=== PATIENT | female | born 1955 | race Caucasian/White ===

== ENCOUNTER 2020-08-30 21:40 | Emergency (ER) | payer BC ==
[2020-08-30] MEDS ORDERED: Sodium Chloride 0.9% 10 ML Syringe FLUSH PRN (22:27)
[2020-08-30] MEDS ORDERED: Ondansetron 4 MG/2 ML SDV IVPUSH ONE (22:27)
--- NOTE | 2020-08-30 22:32 | EDM.PDOC ---
<Bettina Ramsey M - Last Filed: 08/31/20 00:01> ED HPI GENERAL MEDICAL PROBLEM - General Chief Complaint: Respiratory Problem Stated Complaint: sob covid pos Time Seen by Provider: 08/30/20 22:11 Source of Information: Reports: Patient History Limitations: Reports: No Limitations - History of Present Illness INITIAL COMMENTS - FREE TEXT/NARRATIVE: 65-year-old female presents the emergency department after testing Covid positive today. The patient states that her symptoms started approximately 7 days ago however. She states it started with a headache, cough and shortness of breath. She states she has had a fever and chills, nausea, vomiting and diarrhea. She also states that she has lost her sense of taste and smell. And has had little to no appetite. She has been trying to drink Gatorade as much as possible to stay hydrated. She does have a history of hypertension and hypothyroidism. She is also obese with a BMI of 40. She has not had her Covid vaccination yet this year. Headache Pain Score (Numeric/FACES): 9 - Related Data Allergies Allergy/AdvReac Type Severity Reaction Status Date / Time No Known Allergies Allergy Verified 08/30/20 22:09 Home Meds: Home Meds Levothyroxine 175 mcg PO DAILY 08/30/20 [History] Melatonin 5 mg PO BEDTIME 08/30/20 [History] Metoprolol Succinate 50 mg PO BEDTIME 08/30/20 [History] Sertraline [Zoloft] 100 mg PO BEDTIME 08/30/20 [History] hydroCHLOROthiazide [Hydrochlorothiazide] 12.5 mg PO DAILY 08/30/20 [History] Past Medical History HEENT History: Reports: Impaired Vision, Other (See Below) Other HEENT History: wears glasses Cardiovascular History: Reports: Hypertension [employer] History: Reports: Musculoskeletal History: Reports: Arthritis Psychiatric History: Reports: Depression Endocrine/Metabolic History: Reports: Hypothyroidism - Infectious Disease History Infectious Disease History: Reports: Chicken Pox, Measles, Mumps, Novel Coronavirus, Shingles - Past Surgical History HEENT Surgical History: Reports: Adenoidectomy, Tonsillectomy Social & Family History - Family History Family Medical History: No Pertinent Family History - Tobacco Use Tobacco Use Status *Q: Former Tobacco User Used Tobacco, but Quit: Yes Month/Year Tobacco Last Used: 08/1990 - Caffeine Use Caffeine Use: Reports: Coffee - Recreational Drug Use Recreational Drug Use: No ED ROS GENERAL - Review of Systems Review Of Systems: Comprehensive ROS is negative, except as noted in HPI. ED EXAM, GENERAL - Physical Exam Exam: See Below Exam Limited By: No Limitations General Appearance: Alert, WD/WN, Moderate Distress Ears: Normal External Exam, Hearing Grossly Normal Nose: Normal Inspection Throat/Mouth: Normal Inspection, Normal Lips, Normal Voice, No Airway Compromise Head: Atraumatic Neck: Normal Inspection, Supple Respiratory/Chest: Lungs Clear, Normal Breath Sounds, Chest Non-Tender, Respiratory Distress, Accessory Muscle Use Cardiovascular: Normal Peripheral Pulses, Regular Rate, Rhythm, No Edema, No Murmur Peripheral Pulses: 2+: Radial (L), Radial (R) GI/Abdominal: Normal Bowel Sounds, Soft, Non-Tender, No Distention (Female) Exam: Deferred Rectal (Female) Exam: Deferred Back Exam: Normal Inspection Extremities: Normal Inspection, Normal Range of Motion, No Pedal Edema, Normal Capillary Refill Neurological: Alert, Oriented, Normal Cognition Psychiatric: Normal Affect, Anxious Skin Exam: Warm, Dry, Intact, Normal Color, No Rash Lymphatic: No Adenopathy #1 Interpretation EKG Date: 08/30/20 Time: 22:35 Rhythm: NSR Rate (Beats/Min): 98 [place]: Normal P-Wave: Present QRS: Normal ST-T: Normal QT: Normal Comparison: NA - No Prior EKG EKG Interpretation Comments: Per Dr. Alfaro interpretation: NSR @ 98; normal QRS; Q wave V2 Course - Vital Signs Text/Narrative:: Patient presents with headache, fever, chills, cough, shortness of breath, nausea, vomiting, and diarrhea. She has no sense of taste or smell. She tested positive for Covid today and presents to the emergency department this evening with shortness of breath. O2 saturations are 99% on room air. However, patient is only able to talk in 2-3 word sentences due to shortness of breath and coughing. I have ordered labs, chest x-ray, EKG, a saline lock to be placed and IV Zofran as patient is nauseated and last vomited about a half an hour ago. Patient will likely be a candidate for monoclonal antibodies. - Re-Assessments/Exams Free Text/Narrative Re-Assessment/Exam: 08/30/20 23:34 Portable view of the chest reviewed by myself and Dr Aflaro shows a borderline infiltrate in the right lower lobe. Official radiologist report is pending. 08/31/20 00:01 Hematology reveals a WBC of 3.20, hemoglobin 13.4, hematocrit 41.3, platelet count 201, PT 10.4, INR 0.97, PTT 24.1, D-dimer 0.99, chemistry reveals a sodium of 139, potassium 3.3, anion gap 14.3, BUN 15, creatinine 0.8, GFR greater than 60, glucose 113, lactic acid 1.6, ferritin 201, total bilirubin 0.3, AST 28, ALT 41, alk phos 55, LDH 160, C-reactive protein 0.8 Patient is a candidate for monoclonal antibody treatment since she is 65 years of age with a history of hypertension currently being treated with medications. Her BMI is 40. I spoke with the patient to provide information about Bamlanivimad treatment for herself. I offered her the patient caregiver EUA Bamlanivimad fax sheet to read and review. I stated the drug has been approved by an emergency use authorization process and has not been fully active the reviewed or approved. The patient meets the EUA requirements. I discussed there are other potential treatment options that are currently not FDA approved to treat COVID-19. Offered opportunity to ask questions and all questions were answered. The patient voiced understanding and agreed to proceed with treatment for herself. 08/31/20 00:08 Dr. Alfaro will be taking this patient over for me. Departure - Departure Disposition: Home, Self-Care 01 Clinical Impression: Pneumonia due to COVID-19 virus - Discharge Information Instructions: COVID-19 Referrals: Debi Rainey PA-C [Primary Care Provider] - Forms: ED Department Discharge Additional Instructions: Your CXR shows that you likely have a small area of mild viral pneumonia R lower lung field. Your lungs are otherwise clear. You do meet requirements for monoclonal antibody treatment as has been discussed with you by VJ Norris. Return to ED tomorrow morning anytime after 9 AM to receive that treatment IV. Self Isolate. With your symptoms having started about 7 days ago you will still be infectious or potentially infectious to other people for the next 5 to 7 days. Return to ED at any time as needed, especially for severe difficulty breathing. Sepsis Event Note (ED) - Evaluation Sepsis Screening Result: Possible Sepsis Risk <Derek Alfaro - Last Filed: 08/31/20 03:24> Course - Vital Signs Last Recorded V/S: Last Vital Signs Temp 98.7 F 08/31/20 00:42 Pulse 85 08/31/20 00:42 Resp 17 08/31/20 00:42 BP 130/83 08/31/20 00:42 Pulse Ox 95 08/31/20 00:42 - Orders/Labs/Meds Orders: Active Orders 24 hr Category Date Time Status Chest 1V Frontal [CR] Stat Exams 08/30/20 22:26 Taken Isolation [COMM] Stat Oth 08/30/20 22:25 Ordered Saline Lock Insert [OM.PC] Stat Oth 08/30/20 22:27 Ordered Labs: Laboratory Tests 08/30/20 08/30/20 08/30/20 Range/Units 23:03 23:03 23:03 WBC (3.98-10.04) K/mm3 RBC (3.98-5.22) M/mm3 Hgb (11.2-15.7) gm/dl Hct (34.1-44.9) % MCV (79.4-94.8) fl MCH (25.6-32.2) pg MCHC (32.2-35.5) g/dl RDW Std Deviation (36.4-46.3) fL Plt Count (182-369) K/mm3 MPV (9.4-12.3) fl Neut % (Auto) (34.0-71.1) % Lymph % (Auto) (19.3-51.7) % Dunn % (Auto) (4.7-12.5) % Eos % (Auto) (0.7-5.8) Baso % (Auto) (0.1-1.2) % Neut # (Auto) (1.56-6.13) K/mm3 Lymph # (Auto) (1.18-3.74) K/mm3 Dunn # (Auto) (0.24-0.36) K/mm3 Eos # (Auto) (0.04-0.36) K/mm3 Baso # (Auto) (0.01-0.08) K/mm3 PT 10.4 (9.7-12.0) SECONDS INR 0.97 APTT 24.1 (21.7-31.4) SECONDS D-Dimer, Quantitative 0.99 H (0.19-0.50) mg/L Sodium 139 (136-145) mEq/L Potassium 3.3 L (3.5-5.1) mEq/L Chloride 101 (98-107) mEq/L Carbon Dioxide 27 (21-32) mEq/L Anion Gap 14.3 (5-15) BUN 15 (7-18) mg/dL Creatinine 0.8 (0.55-1.02) mg/dL Est Cr Clr Drug Dosing 66.51 mL/min Estimated GFR (MDRD) > 60 (>60) mL/min BUN/Creatinine Ratio 18.8 H (14-18) Glucose 113 H (70-99) mg/dL Lactic Acid (0.4-2.0) mmol/L Calcium 8.9 (8.5-10.1) mg/dL Ferritin 201 (8-252) ng/ml Total Bilirubin 0.3 (0.2-1.0) mg/dL AST 28 (15-37) U/L ALT 41 (14-59) U/L Alkaline Phosphatase 55 (46-116) U/L Lactate Dehydrogenase 160 (81-234) U/L C-Reactive Protein 0.8 (<1.0) mg/dL Total Protein 7.2 (6.4-8.2) g/dl Albumin 3.7 (3.4-5.0) g/dl Globulin 3.5 gm/dL Albumin/Globulin Ratio 1.1 (1-2) 08/30/20 08/30/20 Range/Units 23:03 23:03 WBC 3.20 L (3.98-10.04) K/mm3 RBC 4.55 (3.98-5.22) M/mm3 Hgb 13.4 (11.2-15.7) gm/dl Hct 41.3 (34.1-44.9) % MCV 90.8 (79.4-94.8) fl MCH 29.5 (25.6-32.2) pg MCHC 32.4 (32.2-35.5) g/dl RDW Std Deviation 44.0 (36.4-46.3) fL Plt Count 201 D (182-369) K/mm3 MPV 9.5 (9.4-12.3) fl Neut % (Auto) 64.8 (34.0-71.1) % Lymph % (Auto) 25.9 (19.3-51.7) % Dunn % (Auto) 8.1 (4.7-12.5) % Eos % (Auto) 0.6 L (0.7-5.8) Baso % (Auto) 0.3 (0.1-1.2) % Neut # (Auto) 2.07 (1.56-6.13) K/mm3 Lymph # (Auto) 0.83 L (1.18-3.74) K/mm3 Dunn # (Auto) 0.26 (0.24-0.36) K/mm3 Eos # (Auto) 0.02 L (0.04-0.36) K/mm3 Baso # (Auto) 0.01 (0.01-0.08) K/mm3 PT (9.7-12.0) SECONDS INR APTT (21.7-31.4) SECONDS D-Dimer, Quantitative (0.19-0.50) mg/L Sodium (136-145) mEq/L Potassium (3.5-5.1) mEq/L Chloride (98-107) mEq/L Carbon Dioxide (21-32) mEq/L Anion Gap (5-15) BUN (7-18) mg/dL Creatinine (0.55-1.02) mg/dL Est Cr Clr Drug Dosing mL/min Estimated GFR (MDRD) (>60) mL/min BUN/Creatinine Ratio (14-18) Glucose (70-99) mg/dL Lactic Acid 1.6 (0.4-2.0) mmol/L Calcium (8.5-10.1) mg/dL Ferritin (8-252) ng/ml Total Bilirubin (0.2-1.0) mg/dL AST (15-37) U/L ALT (14-59) U/L Alkaline Phosphatase (46-116) U/L Lactate Dehydrogenase (81-234) U/L C-Reactive Protein (<1.0) mg/dL Total Protein (6.4-8.2) g/dl Albumin (3.4-5.0) g/dl Globulin gm/dL Albumin/Globulin Ratio (1-2) Meds: Medications Discontinued Medications Generic Name Dose Route Start Last Admin Trade Name Freq PRN Reason Stop Dose Admin Diphenhydramine HCl 50 mg 08/31/20 00:03 Diphenhydramine 50 Mg/Ml Sdv IVPUSH ONETIME PRN hypersensitivity reaction Epinephrine HCl 0.3 mg 08/31/20 00:03 Epinephrine 1 Mg/Ml Sdv IM ONETIME PRN hypersensitivity reaction Famotidine 20 mg 08/31/20 00:03 Famotidine 20 Mg/2 Ml Sdv IVPUSH ONETIME PRN hypersensitivity reaction Bamlanivimab 700 mg/ 310 mls @ 310 mls/hr 08/31/20 00:03 Etesevimab 1,400 mg/ Sodium IV 08/31/20 01:02 Chloride ONETIME ONE Methylprednisolone Sodium Succinate 125 mg 08/31/20 00:03 Methylprednisolone Sodium Succinate 125 Mg/2 Ml Sdv IVPUSH ONETIME PRN hypersensitivity reaction Ondansetron HCl 4 mg 08/30/20 22:27 08/30/20 22:59 Ondansetron 4 Mg/2 Ml Sdv IVPUSH 08/30/20 22:28 4 mg ONETIME ONE Administration Sodium Chloride 10 ml 08/30/20 22:27 08/30/20 22:59 Sodium Chloride 0.9% 10 Ml Syringe FLUSH 10 ml ASDIRECTED PRN Administration Keep Vein Open Sodium Chloride 30 ml 08/31/20 00:15 Sodium Chloride 0.9% 10 Ml Syringe FLUSH ASDIRECTED JAKE - Re-Assessments/Exams Free Text/Narrative Re-Assessment/Exam: 08/31/20 03:20. Assumed care form Yoli Villa at end of her shift. I agree with her hx and exam as documented. Her covid markers are all normal or very slightly elevated. She may have slight R lower lobe infiltrate. Her O2 sats are good. The plan had been for her to get monoclonal antibody treatment and than go home. However pharmacy is not in house to get that ready for infusion. Patient has requested to go home, come back in the morning when pharmacy will be here to get that ready for infusion. Outpatient order has been written. Information presented to patient by Yoli Villa as documented. Discharge instr. as documented. Departure - Departure Time of Disposition: 00:31 Condition: Fair Sepsis Event Note (ED) - Focused Exam Vital Signs: Vital Signs Temp Pulse Resp BP Pulse Ox 08/31/20 00:42 98.7 F 85 17 130/83 95 08/30/20 22:02 97.9 F 104 H 22 H 145/97 H 99
[2020-08-31] MEDS ORDERED: EPINEPHrine 1 MG/ML SDV IM PRN (00:03)
[2020-08-31] MEDS ORDERED: methylPREDNISolone Sodium Succinate 125 MG/2 ML SDV IVPUSH PRN (00:03)
[2020-08-31] MEDS ORDERED: diphenhydrAMINE 50 MG/ML SDV IVPUSH PRN (00:03)
[2020-08-31] MEDS ORDERED: Famotidine 20 MG/2 ML SDV IVPUSH PRN (00:03)
[2020-08-31] MEDS ORDERED: Sodium Chloride 0.9% 10 ML Syringe FLUSH SCH (00:15)
--- NOTE | 2020-08-31 07:30 | CR ---
Chest: AP view of the chest was obtained. Comparison: Prior chest x-ray of 09/24/19. Heart size is at the upper limits of normal. Tortuous thoracic aorta is seen. Lungs are clear with no acute parenchymal change. No acute osseous abnormality is appreciated. Impression: 1. Findings as noted above. 2. Nothing acute is seen on AP chest x-ray. Diagnostic code #2
== END 2020-08-31 00:42 | disposition home or self-care (01) ==
LOC: JD.ED 21:40
DX: U07.1 COVID-19 (principal); J12.82 Pneumonia due to coronavirus disease 2019; E03.9 Hypothyroidism, unspecified; I10 Essential (primary) hypertension; Z87.891 Personal history of nicotine dependence
CPT/HCPCS: 36415; 71045; 80053; 82728; 83605; 83615; 85025; 85379; 85610; 85730; 86140; 93005; 96374; 99285; J2405; 99284

== ENCOUNTER 2022-04-16 07:28 | Day surgery (SDC) | payer MEDICARE, BC ==
[~2022-04-16 07:28] MED LIST: Acetaminophen 325 MG Tab PO SCH; Lactated Ringers 1,000 ML IV SCH; Lidocaine 1%/Sod Bicarbonate in NS 8.4% 1 ML Syringe IDERM PRN; Pregabalin 25 MG Cap PO SCH; Sodium Chloride 0.9% 10 ML Syringe FLUSH PRN; Sodium Chloride 0.9% 10 ML Syringe FLUSH SCH; oxyCODONE ER 10 MG TAB.ER PO SCH
[2022-04-16] MEDS ORDERED: Propofol 200 MG/20 ML SDV ONE ×2 (07:52→10:35)
[2022-04-16] MEDS ORDERED: fentaNYL 100 MCG/2 ML SDV ONE (07:53)
[2022-04-16] MEDS ORDERED: Lidocaine 1% 5 ML VIAL ONE ×2 (07:53→10:44)
[2022-04-16] MEDS ORDERED: Midazolam 1 MG/ML 2 ML SDV ONE (07:53)
[2022-04-16] MEDS ORDERED: Dexamethasone 4 MG/ML 5 ML MDV ONE (07:58)
[2022-04-16] MEDS ORDERED: Ondansetron 4 MG/2 ML SDV ONE (07:58)
[2022-04-16] MEDS ORDERED: ceFAZolin 2 GM Vial ONE (07:58)
[2022-04-16] MEDS ORDERED: Dexmedetomidine 200 MCG/2 ML SDV ONE (07:59)
[2022-04-16] MEDS ORDERED: EPINEPHrine 1 MG/ML SDV ONE (08:01)
[2022-04-16] MEDS ORDERED: Ropivacaine 0.5% 5 MG/ML 30 ML SDV ONE (08:01)
[2022-04-16] MEDS ORDERED: Lactated Ringers 1,000 ML ONE ×2 (09:44→10:38)
[2022-04-16] MEDS ORDERED: ePHEDrine 50 MG/ML SDV ONE (09:46)
[2022-04-16] MEDS ORDERED: fentaNYL 100 MCG/2 ML SDV IVPUSH PRN ×2 (09:53→11:42)
[2022-04-16] MEDS ORDERED: HYDROmorphone 0.5 MG/0.5 ML Syringe IVPUSH PRN ×2 (09:53→11:42)
[2022-04-16] MEDS ORDERED: Ondansetron 4 MG/2 ML SDV IVPUSH PRN ×2 (09:53→11:42)
[2022-04-16] MEDS: Tranexamic Acid 1,000 MG/10 ML Vial ONE ×2 (10:14→10:46)
[2022-04-16] MEDS: Vancomycin 1 GM SDV ONE ×2 (10:15→10:46)
[2022-04-16] MEDS: Triamcinolone Acetonide 40 MG/ML 1 ML SDV ONE ×2 (10:15→11:09)
[2022-04-16] MEDS: Morphine 8 MG, EPINEPHrine 0.3 MG, Cefuroxime 750 MG, Ketorolac 30 MG, Sodium Chloride ... PRN ×10 (10:15→10:35)
[2022-04-16] MEDS: Bupivacaine 0.25% 10 ML SDV ONE ×2 (10:16→11:09)
[2022-04-16] MEDS ORDERED: Ketorolac 30 MG/ML SDV ONE (11:00)
== END 2022-04-16 14:55 | disposition home or self-care (01) ==
LOC: JD.SDS 07:28
PROVIDERS: ATTEND Orthopaedic Surgery
DX: M17.0 Bilateral primary osteoarthritis of knee (principal); F41.9 Anxiety disorder, unspecified; F32.A Depression, unspecified; E03.9 Hypothyroidism, unspecified; I10 Essential (primary) hypertension; G47.00 Insomnia, unspecified; R73.03 Prediabetes; E66.9 Obesity, unspecified; Z79.899 Other long term (current) drug therapy; Z79.890 Hormone replacement therapy; Z98.890 Other specified postprocedural states; Z87.891 Personal history of nicotine dependence; Z79.82 Long term (current) use of aspirin; Z68.41 Body mass index [BMI] 40.0-44.9, adult
CPT/HCPCS: 0055T; 27447; 36415; 64447; 73560; 80048; 97110; 97116; 97161; A9270; C1713; C1776; J0171; J0690; J0697; J1100; J1885; J2250; J2270; J2405; J2704; J2795; J3010; J3301; J3370; J3490; J7120; 01402; 64450